=== PATIENT | female | born 1980 | race Caucasian/White ===

== ENCOUNTER 2021-02-22 14:54 | Emergency (ER) | payer OTHER ==
[2021-02-22 21:47] LABS: BILIRUBIN 1+ mg/dL (NEGATIVE); BLOOD NEGATIVE Ery/uL (NEGATIVE); CLARITY CLOUDY (CLEAR); COLOR YELLOW (YELLOW); GLUCOSE (U) NORMAL (NORMAL); LEUKOCYTES NEGATIVE Leu/uL (NEGATIVE); NITRITE NEGATIVE (NEGATIVE); PROTEIN TRACE (LOW) mg/dL (NEGATIVE); SPECIFIC GRAVITY 1.025 (1.001-1.030); pH 5.5 (5.0-9.0)
[2021-02-22 21:50] LABS: BACTERIA 2+
[2021-02-22 21:51] LABS: AMORPHOUS URATES CRYSTALS MODERATE
[2021-02-22 22:01] LABS: BASOPHIL 0 % (0-2); EOSINOPHIL 0.2 % (0-5); HCT 38.1 % (37.0-47.0); HGB 13.2 g/dl (12.5-16.0); LYMPHOCYTE 20.3 % (15-48); MCH 29.6 pg (25.0-31.0); MCHC 34.6 g/dL (32.0-36.0); MCV 85.4 fL (78.0-100.0); MONOCYTE 4.6 % (0-12); NEUTROPHIL 74.7 % (41-80); NRBC 0; PLT 174 K/uL (150-400); RBC 4.46 M/uL (4.20-5.40); RDW 12.6 % (11.5-14.0); WBC 4.8 K/uL (4.0-10.5)
[2021-02-22 22:24] LABS: ALBUMIN 3.3 g/dL (3.4-5.0); BILIRUBIN - TOTAL 0.5 mg/dL (0.2-1.0); BUN/CREAT RATIO (CALC) 12.5 RATIO; CREATININE 0.88 mg/dL (0.51-0.95); GLOBULIN (CALCULATION) 3.7 g/dL; POTASSIUM 3.2 mmol/L (3.5-5.1)
[2021-02-22 23:09] LABS: LACTIC ACID 1.2 mmol/L (0.4-1.9)
[2021-02-23] MEDS ORDERED: CEFDINIR300 MG PO (00:51)
== END 2021-02-23 01:02 | disposition home or self-care (01) ==
LOC: FER 14:54
PROVIDERS: Emergency Medicine
DX: J18.9 Pneumonia, unspecified organism (principal); R09.02 Hypoxemia
CPT/HCPCS: 36415; 36600; 71045; 80053; 81001; 82803; 83605; 84484; 85025; 93005; J1885; J2405; J2543; J7030